=== PATIENT | male | born 1945 | race Caucasian/White ===

== ENCOUNTER 2018-03-10 16:46 | Emergency (ER) | payer MEDICARE, BC ==
[~2018-03-10] VITALS: Ht 190.5 cm; Wt 111.4 kg
[~2018-03-10 16:46] MED LIST: ALLOPURINOL300 MG PO; ASPIRIN 32325 MG/TAB PO; ASPIRIN E.C. 8181 MG PO; BENICAR 20MG TA20 MG PO; BENICAR/HCTZ PO; BUFFERED ASPIR325 M1 PO; CEFTIN250 M1 PO; CLINDAMYCIN HC300 MG PO; COREG PO; COREG12.5 MG PO; COUMADIN 3MG3 MG/TAB PO; COUMADIN 4MG4 MG/TAB PO; COZAAR 25MG25 MG/TAB PO; DIGITEK0.125 MG PO; DIGOXIN0.125 MG PO; FLOMAX 0.40.4 MG/CAP PO; HCTZ 25MG25 MG PO; LASIX 40MG TABL40 MG PO; LESCOL XL PO; LORTAB 7.5/5001 TAB PO; LOVENOX 100100 MG/ML SQ; LOVENOX40 MG/0.4 SC; NO HOME MEDICATIONS; NORCO 325 MG-51 TAB; TRAMADOL50 MG PO; UROXATRAL10 M1 PO; WARFARIN4 MG PO; ZOCOR 20MG20 MG PO; ZYLOPRIM 300MG300 MG PO
[2018-03-10 17:30] VITALS: BP 147/73; TEMP 97.5
[2018-03-10 17:32] LABS: BASO # 0.1 (0.0-0.2); EOS # 0.2 (0.0-0.7); EOS % 2.2 % (0-4.0); GRAN # 4.6 (1.4-6.5); GRAN % 67.4 % (42.2-75.2); HEMATOCRIT 39.9 % (42.0-52.0); HEMOGLOBIN 13.7 g/dl (13.5-18.0); LYMPH # 1.4 (1.2-3.4); LYMPH % 20.3 % (20.0-51.0); MEAN CELL VOLUME 98 fl (80.0-100.0); MEAN CORPUSCULAR HEMOGLOBIN 34 pg (27.0-31.0); MEAN CORPUSCULAR HGB CONC 34 g/dl (33.0-37.0); MEAN PLATELET VOLUME 10.6 fl (7.4-10.4); MONO # 0.6 (0.1-0.6); MONO % 8.7 % (1.7-9.3); PLATELET COUNT 119 K/mm3 (130-400); RED BLOOD COUNT 4.09 M/mm3 (4.20-5.60)
[2018-03-10 17:37] LABS: INR 1.7 (0.8-3.0); PROTHROMBIN TIME 19.7 SECONDS (9.7-12.8)
[2018-03-10 18:13] VITALS: PULSE 73
== END 2018-03-10 18:14 | disposition home or self-care (01) ==
LOC: COL.ER 16:46
PROVIDERS: Family Medicine
DX: R04.0 Epistaxis (principal); I48.91 Unspecified atrial fibrillation; Z79.01 Long term (current) use of anticoagulants; Z79.82 Long term (current) use of aspirin

== ENCOUNTER 2018-10-01 22:57 | Emergency (ER) | payer MEDICARE, BC ==
[~2018-10-01] VITALS: Ht 190.5 cm; Wt 105.5 kg
[2018-10-01 23:09] VITALS: TEMP 97
[2018-10-01] MEDS ORDERED: MELATONIN5 M1 SL (23:57)
[2018-10-01] MEDS ORDERED: B-121000 MCG PO (23:58)
[2018-10-02 01:39] LABS: INR 2.1 (0.8-3.0); PROTHROMBIN TIME 23.8 SECONDS (9.7-12.8)
[2018-10-02] MEDS ORDERED: DOXYCYCLINE HY100 MG PO (02:04)
[2018-10-02 02:27] VITALS: BP 146/95; PULSE 74
== END 2018-10-02 02:32 | disposition home or self-care (01) ==
LOC: COL.ER 22:57
PROVIDERS: Emergency Medicine
DX: L76.21 Postprocedural hemorrhage of skin and subcutaneous tissue following a dermatologic procedure (principal); I10 Essential (primary) hypertension; E78.5 Hyperlipidemia, unspecified; I48.91 Unspecified atrial fibrillation; Z79.82 Long term (current) use of aspirin; Z79.01 Long term (current) use of anticoagulants

== ENCOUNTER 2018-10-02 10:05 | Emergency (ER) | payer MEDICARE, BC ==
[~2018-10-02] VITALS: Ht 190.5 cm; Wt 105.5 kg
[~2018-10-02 10:05] MED LIST changes: +B-121000 MCG PO; +DOXYCYCLINE HY100 MG PO; +MELATONIN5 M1 SL
[2018-10-02 10:13] VITALS: TEMP 96.7
[2018-10-02 12:48] VITALS: BP 142/89; PULSE 70
== END 2018-10-02 13:58 | disposition home or self-care (01) ==
LOC: COL.ER 10:05
DX: T81.31XA Disruption of external operation (surgical) wound, not elsewhere classified, initial encounter (principal); Z79.01 Long term (current) use of anticoagulants; Z98.890 Other specified postprocedural states; Z79.82 Long term (current) use of aspirin

== ENCOUNTER → 2019-02-15 | Outpatient (CLI) | payer MEDICARE, BC ==
[2019-02-15 10:34] LABS: HEMATOCRIT 35.5 % (42.0-52.0); HEMOGLOBIN 11.7 g/dl (13.5-18.0); MEAN CELL VOLUME 99 fl (80.0-100.0); MEAN CORPUSCULAR HEMOGLOBIN 33 pg (27.0-31.0); MEAN CORPUSCULAR HGB CONC 33 g/dl (33.0-37.0); MEAN PLATELET VOLUME 10.5 fl (7.4-10.4); PLATELET COUNT 158 K/mm3 (130-400); RED BLOOD COUNT 3.57 M/mm3 (4.20-5.60); REDCELL DISTRIBUTION WIDTH-CV 14.6 % (11.5-14.5)
[2019-02-15 10:55] LABS: ERYTHROCYTE SEDIMENTATION RATE 76 mm/hr (0-30)
== END ==
LOC: COL.LAB 10:01
PROVIDERS: Orthopaedic Surgery
DX: Z01.812 Encounter for preprocedural laboratory examination (principal); M25.462 Effusion, left knee

== ENCOUNTER 2019-02-17 14:26 | Inpatient (IN) | payer MEDICARE, BC ==
[~2019-02-17] VITALS: Ht 188 cm; Wt 99.6 kg
[2019-02-24] VITALS (9 sets, daily range): BP systolic 120–129; BP diastolic 60–87; PULSE 69–77; TEMP 97–98.9
[2019-02-24 07:48] LABS: INR 1.3 (0.8-3.0); PROTHROMBIN TIME 14.3 SECONDS (9.7-12.8)
[2019-02-24] MEDS ORDERED: TOPROL XL 50MG50 MG PO (08:04)
[2019-02-24] MEDS ORDERED: LOVENOX 100100 MG/ML SQ (08:06)
--- NOTE | 2019-02-24 14:30 | NUR ---
PATIENT BACK IN ROOM 330 POST OP LTK REV WITH POLY EXCHANGE. LTK DRESSING IS CD&I WITH ACEWRAP & TECHNOL BRACE. TEDS & SCD'S TO BLE. POSITIVE PEDAL PULSES TO BLE. SANDOVAL TO DEPENDENT DRAINAGE WITH SMALL AMOUNTS OF CLEAR YELLOW URINE NOTED. IV FLUIDS INFUSING VIA PUMP INTO RIGHT WRIST. NO C/O N/V. LIQUIDS AT BEDSIDE. HEAD TO TOE ASSESSMENT WNL. I&D CONSULT CALLED. PICC LINE TO BE PLACED IN AM. FAMILY AT BEDSIDE. NO OTHER NEEDS. CALL LIGHT IN REACH.
--- NOTE | 2019-02-24 16:26 | NUR ---
ALMA and ALMA student met with the patient and patient's son, Christiano, to discuss discharge plan. The patient lives alone in [place]. He states that his son, Christiano, lives in [facility] and that he has another son that lives in [place]. He reports needing assistance with bathing and has a cane and walker. He states that Christiano is able to help him with bathing. The patient's PCP is Dr. Angel King and he receives his medications by delivery through [facility] and he states that Christiano is also able to pick them up for him. He reports no difficulties obtaining his meds. The patient does not have advanced directives in EMR, but he states that he does have them completed at that his PCP's office should have a copy. ALMA student contacted the patient's PCP's office and requested a copy. The patient reports that he is interested in post-acute rehab upon discharge. ALMA presented and explained the patient choice form. The patient preferred 1) [facility] 2) [facility]. Patient choice form signed by the patient and he was provided a copy. ALMA contacted and faxed a referral to both facilities. SW awaiting their screenings.
[2019-02-24 16:36] LABS: BASO % 0.2 % (0.0-2.0); EOS % 0.3 % (0-4.0); GRAN % 84.7 % (42.2-75.2); LYMPH % 7.4 % (20.0-51.0); MEAN CELL VOLUME 98 fl (80.0-100.0); MEAN CORPUSCULAR HGB CONC 32 g/dl (33.0-37.0); MEAN PLATELET VOLUME 10.1 fl (7.4-10.4); MONO # 0.9 (0.1-0.6); MONO % 6.9 % (1.7-9.3); PLATELET COUNT 228 K/mm3 (130-400); RED BLOOD COUNT 2.93 M/mm3 (4.20-5.60); REDCELL DISTRIBUTION WIDTH-CV 14.7 % (11.5-14.5)
[2019-02-24 16:39] LABS: HEMATOCRIT 28.7 % (42.0-52.0); HEMOGLOBIN 9.2 g/dl (13.5-18.0); MEAN CORPUSCULAR HEMOGLOBIN 31 pg (27.0-31.0)
[2019-02-24 16:53] LABS: ALBUMIN 3.2 gm/dL (3.5-5.0); BILIRUBIN,TOTAL 1.2 mg/dL (0.0-1.0); C-REACTIVE PROTEIN 7.1 mg/dL (0.0-0.9); CALCIUM 8.8 mg/dL (8.4-10.2); CREATININE, serum 0.95 (0.66-1.25); POTASSIUM 4.4 mmol/L (3.4-5.0); TOTAL PROTEIN 6.6 gm/dL (6.4-8.2)
[2019-02-24 16:56] LABS: ERYTHROCYTE SEDIMENTATION RATE 95 mm/hr (0-30)
--- NOTE | 2019-02-24 20:00 | NUR ---
SHIFT REPORT RECEIVED FROM ASHLYN UMANA. PT ANXIOUS AFFECT. PAIN MEDICATION RELEIVING RT KNEE PAIN AT THIS TIME. LLE ELEVATED HIGH ON PILLOW. BULKY DRSG, SCD'S AND CRYOCUFF IN PLACE. IVF'S TO RT HAND. SITE CLEAR. SANDOVAL DRAINING FREELY IN SUFFICIENT QUANITIES. CALL LIGHT IN REACH. BED ALARM SET.
[2019-02-25 00:39] VITALS: BP 127/70; PULSE 80; TEMP 99
[2019-02-25 04:03] VITALS: BP 131/81; PULSE 72; TEMP 98
[2019-02-25 07:07] LABS: INR 1.3 (0.8-3.0); PROTHROMBIN TIME 14.4 SECONDS (9.7-12.8)
[2019-02-25 07:09] LABS: HEMATOCRIT 25.2 % (42.0-52.0); HEMOGLOBIN 8.2 g/dl (13.5-18.0)
--- NOTE | 2019-02-25 07:35 | NUR ---
Report from Renee UMANA.
[2019-02-25 08:33] VITALS: BP 115/65; PULSE 77; TEMP 98.4
--- NOTE | 2019-02-25 09:23 | NUR ---
Brenda, at [facility], reports that they would like to accept the patient; but that they do not have any beds coming available this weekend. Brenda reports that she will keep SW updated. SW to inform the patient and continue to follow.
[2019-02-25 12:36] VITALS: BP 121/67; PULSE 75; TEMP 98.1
--- NOTE | 2019-02-25 14:27 | NUR ---
Joey, at [facility], reports that they can clinically accept the patient; but that he will need to figure out if they will have a bed available. ALMA and ALMA student then met with the patient to update on the referrals. The patient reports that if those facilities do not have a bed for him, then he would prefer [facility]. ALMA attempted to contact Tank at [facility]. ALMA faxed a referral and will continue to follow.
--- NOTE | 2019-02-25 14:59 | NUR ---
Joey, at [facility], reports that they will have a bed available for the patient and that they can accept him. Joey reports that SW will need to keep [facility] updated on what IV antibiotic the patient will be discharged on and the frequency. ALMA and SW student met with the patient to update. The patient reports that he is agreeable to transfer to [facility] upon discharge. SW to continue to follow.
[2019-02-25 16:46] VITALS: BP 131/74; PULSE 77; TEMP 98.1
--- NOTE | 2019-02-25 17:48 | NUR ---
SANDOVAL CATHETER DISCONTINUED EARLIER IN SHIFT. PT TOLERATED WELL TIP INTACT. PATIENT HAS VOIDED SEVERAL TIMES THIS PM.
--- NOTE | 2019-02-25 20:10 | NUR ---
Pt resting in bed napping, shift assessments complete.
--- NOTE | 2019-02-25 20:20 | NUR ---
Pt ambulated to the nurses station, to the room sink and the restroom before returning to bed.
[2019-02-26 00:36] VITALS: BP 116/64; PULSE 72; TEMP 98.1
[2019-02-26 04:18] VITALS: BP 120/67; PULSE 77; TEMP 98.2
--- NOTE | 2019-02-26 05:21 | NUR ---
Pt slept well during the night, some C/O pain in his left leg, VS have remained stable, Pt did ambulate last evening and walked about 25 - 30 feet.
[2019-02-26 07:41] LABS: INR 1.5 (0.8-3.0); PROTHROMBIN TIME 17.2 SECONDS (9.7-12.8)
[2019-02-26 08:42] VITALS: BP 125/73; PULSE 82; TEMP 98.2
[2019-02-26 16:01] VITALS: BP 124/60; PULSE 76; TEMP 97.3
--- NOTE | 2019-02-26 18:00 | NUR ---
Left knee incisional pain improved with prn pain meds. Cryocuff to knee. Dressing change done. Incisional line CDI. Aquacell applied. Patient tolerated procedure fairly well.
--- NOTE | 2019-02-26 20:00 | NUR ---
PT RESTING IN BED. PT ASKED THAT NURSING STAFF NEEDS TO REMIND HIM TP DRINK MORE FLUIDS. I ENC PT TO PARTICIPATE IN HIS OWN RECOVERY PROCESS . PROVIDED FRESH H20. PT C/O LLE PAIN LEVEL 7. REPOSITIONED LEG HIGHER ON PILLOWS. REFUSED CRYOCUFF AT THIS TIME. SCD'S ON. SEE MAR FOR PAIN MEDS GIVEN. DISCUSSED C/O CONSTIPATION. PASSING FLATUS. HYPOACTIVE BS. SEE MAR FOR SENOKOT GIVEN. ORDERED PT PRUNES FOR IN AM. ENC MORE JUICES, AND ACTIVITY. PT AGREED. CALL LIGHT IN PLACE. BED ALARM SET.
[2019-02-26] MEDS ORDERED: COUMADIN 5MG5 MG/TAB PO (20:13)
[2019-02-26] MEDS ORDERED: NORCO 325 MG-7.1 TAB PO (20:13)
[2019-02-26] MEDS ORDERED: ROXICODONE 55 MG/TAB PO (20:14)
[2019-02-26 20:33] VITALS: BP 115/63; PULSE 73; TEMP 98.7
[2019-02-27 00:55] VITALS: BP 123/71; PULSE 72; TEMP 97.8
[2019-02-27 05:03] VITALS: BP 116/62; PULSE 77; TEMP 98.1
--- NOTE | 2019-02-27 06:30 | NUR ---
PT HAD RESTFUL NIGHT. NO BM THIS SHIFT. GAVE WARM PRUNE/APPLE JUICE. SEVERAL DAYS SINCE LAST BM. PT REFUSED SUPPOSITORY. PASSIBG GAS. ABD SL DISTENDED. LAB HERE EARLIER FOR PICC LINE DRAW.
[2019-02-27 08:00] VITALS: BP 132/66; PULSE 93; TEMP 97.1
[2019-02-27 08:02] LABS: INR 1.6 (0.8-3.0); PROTHROMBIN TIME 18.3 SECONDS (9.7-12.8)
--- NOTE | 2019-02-27 10:03 | NUR ---
ALMA met with patient about ps dc today. Patient is agreeable to [facility]. ALMA faxed DC orders to [facility] at [phone] and made contact with Joey at [facility] [phone], Transportation tentative for 12:00 pm.
[2019-02-27 10:23] VITALS: BP 132/66; PULSE 93; TEMP 97.1
[2019-02-27 12:00] VITALS: BP 121/63; PULSE 82; TEMP 97
[2019-02-27] MEDS ORDERED: VANCO 1.51.5 GM/250 IV (12:19)
--- NOTE | 2019-02-27 13:00 | NUR ---
Ambulated in halls with physical therapy today. Sat up in recliner chair. Left knee pain controlled with prn Cuero and Roxicodone. Cryocuff to knee. Immobilizer in place. Report given to nurse at [facility]. Dismissed with PICC line in place for antibiotics. Dismissed per w/c gary. Family here.
== END 2019-02-27 13:00 | DRG 467 ==
LOC: JCC 02-24 06:57 → SURG 02-24 11:00 → JCC 02-24 11:00
PROVIDERS: Internal Medicine Infectious Disease; ADMIT Orthopaedic Surgery
PROC: 0SRD0EZ Replacement of Left Knee Joint with Articulating Spacer, Open Approach (ICD-10-PCS; 2019-02-24)
PROC: 0SBD0ZZ Excision of Left Knee Joint, Open Approach (ICD-10-PCS; 2019-02-24)
PROC: 0SPD0JZ Removal of Synthetic Substitute from Left Knee Joint, Open Approach (ICD-10-PCS; principal; 2019-02-24 10:10)
DX: T84.54XA Infection and inflammatory reaction due to internal left knee prosthesis, initial encounter (principal); I42.0 Dilated cardiomyopathy; Z96.652 Presence of left artificial knee joint; Z79.01 Long term (current) use of anticoagulants; I10 Essential (primary) hypertension; Z95.0 Presence of cardiac pacemaker; I48.91 Unspecified atrial fibrillation; I87.2 Venous insufficiency (chronic) (peripheral); Z85.828 Personal history of other malignant neoplasm of skin; Z88.0 Allergy status to penicillin
CPT/HCPCS: A4314; A9284; C1751; C1776; J0690; J1170; J1650; J2250; J2270; J2704; J3010; J3260; J3370; J7050; J7120; L1830

== ENCOUNTER → 2019-02-21 | Outpatient (CLI) | payer MEDICARE, BC ==
[2019-02-21 18:50] LABS: HIV 1/2 Antibodies Non-Reactive; HIV-1p24 Antigen Non-Reactive
== END ==
LOC: COL.LAB 17:16
PROVIDERS: Orthopaedic Surgery
DX: Z01.812 Encounter for preprocedural laboratory examination (principal)

== ENCOUNTER → 2019-03-02 | Outpatient (REF) ==
[~2019-03-02] MED LIST changes: +COUMADIN 5MG5 MG/TAB PO; +NORCO 325 MG-7.1 TAB PO; +ROXICODONE 55 MG/TAB PO; +TOPROL XL 50MG50 MG PO; +VANCO 1.51.5 GM/250 IV
[2019-03-02 08:45] LABS: BASO % 0.4 % (0.0-2.0); EOS # 0.2 (0.0-0.7); GRAN # 5.6 (1.4-6.5); GRAN % 76.3 % (42.2-75.2); LYMPH # 0.9 (1.2-3.4); LYMPH % 11.7 % (20.0-51.0); MEAN CELL VOLUME 96 fl (80.0-100.0); MEAN CORPUSCULAR HGB CONC 32 g/dl (33.0-37.0); MEAN PLATELET VOLUME 9.9 fl (7.4-10.4); MONO # 0.6 (0.1-0.6); MONO % 8.5 % (1.7-9.3); PLATELET COUNT 282 K/mm3 (130-400); RED BLOOD COUNT 2.53 M/mm3 (4.20-5.60); REDCELL DISTRIBUTION WIDTH-CV 15.2 % (11.5-14.5)
[2019-03-02 08:47] LABS: HEMATOCRIT 24.2 % (42.0-52.0); HEMOGLOBIN 7.8 g/dl (13.5-18.0); MEAN CORPUSCULAR HEMOGLOBIN 31 pg (27.0-31.0)
[2019-03-02 08:52] LABS: INR 1.6 (0.8-3.0)
[2019-03-02 08:59] LABS: ALBUMIN 2.7 gm/dL (3.5-5.0); BILIRUBIN,TOTAL 0.9 mg/dL (0.0-1.0); C-REACTIVE PROTEIN 4.6 mg/dL (0.0-0.9); CALCIUM 8.3 mg/dL (8.4-10.2); CREATININE, serum 0.94 (0.66-1.25); POTASSIUM 4.2 mmol/L (3.4-5.0); TOTAL PROTEIN 5.5 gm/dL (6.4-8.2)
[2019-03-02 09:01] LABS: VANCOMYCIN TROUGH 18.54 ug/mL (7.00-20.00)
[2019-03-02 09:06] LABS: ERYTHROCYTE SEDIMENTATION RATE 109 mm/hr (0-30)
== END ==
LOC: ZLAB.STJ 08:29
PROVIDERS: Family Medicine
DX: Z79.899 Other long term (current) drug therapy (principal)

== ENCOUNTER → 2019-03-04 | Outpatient (REF) ==
[2019-03-04 16:15] LABS: INR 1.5 (0.8-3.0); PROTHROMBIN TIME 17.4 SECONDS (9.7-12.8)
== END ==
LOC: ZLAB.STJ 15:58
PROVIDERS: Family Medicine
DX: R79.1 Abnormal coagulation profile (principal)

== ENCOUNTER → 2019-03-09 | Outpatient (REF) ==
[2019-03-09 10:34] LABS: MEAN CELL VOLUME 97 fl (80.0-100.0); MEAN CORPUSCULAR HGB CONC 32 g/dl (33.0-37.0); MEAN PLATELET VOLUME 10.1 fl (7.4-10.4); PLATELET COUNT 248 K/mm3 (130-400); RED BLOOD COUNT 2.76 M/mm3 (4.20-5.60); REDCELL DISTRIBUTION WIDTH-CV 15.9 % (11.5-14.5)
[2019-03-09 10:36] LABS: HEMATOCRIT 26.7 % (42.0-52.0); HEMOGLOBIN 8.5 g/dl (13.5-18.0); MEAN CORPUSCULAR HEMOGLOBIN 31 pg (27.0-31.0)
[2019-03-09 10:43] LABS: ALBUMIN 3.3 gm/dL (3.5-5.0); BILIRUBIN,TOTAL 0.7 mg/dL (0.0-1.0); C-REACTIVE PROTEIN 0.9 mg/dL (0.0-0.9); CALCIUM 9.1 mg/dL (8.4-10.2); CREATININE, serum 0.98 (0.66-1.25); POTASSIUM 3.9 mmol/L (3.4-5.0); TOTAL PROTEIN 6.6 gm/dL (6.4-8.2)
[2019-03-09 10:54] LABS: ERYTHROCYTE SEDIMENTATION RATE 63 mm/hr (0-30)
== END ==
LOC: ZLAB.STJ 10:28
PROVIDERS: Family Medicine
DX: Z51.81 Encounter for therapeutic drug level monitoring (principal); R79.82 Elevated C-reactive protein (CRP); R79.89 Other specified abnormal findings of blood chemistry; R70.0 Elevated erythrocyte sedimentation rate

== ENCOUNTER → 2019-03-10 | Outpatient (REF) ==
[2019-03-10 09:22] LABS: INR 1.5 (0.8-3.0); PROTHROMBIN TIME 16.7 SECONDS (9.7-12.8)
== END ==
LOC: ZLAB.STJ 09:05
PROVIDERS: Family Medicine
DX: Z79.01 Long term (current) use of anticoagulants (principal)

== ENCOUNTER → 2019-03-14 | Outpatient (REF) ==
[2019-03-14 09:33] LABS: PROTHROMBIN TIME 33.6 SECONDS (9.7-12.8)
== END ==
LOC: ZLAB.STJ 09:00
PROVIDERS: Family Medicine
DX: R79.1 Abnormal coagulation profile (principal)

== ENCOUNTER → 2019-03-16 | Outpatient (REF) ==
[2019-03-16 10:11] LABS: BASO # 0.1 (0.0-0.2); EOS # 0.1 (0.0-0.7); EOS % 2.1 % (0-4.0); ERYTHROCYTE SEDIMENTATION RATE 34 mm/hr (0-30); HEMATOCRIT 30.2 % (42.0-52.0); HEMOGLOBIN 9.4 g/dl (13.5-18.0); LYMPH # 1.1 (1.2-3.4); LYMPH % 18.5 % (20.0-51.0); MEAN CELL VOLUME 97 fl (80.0-100.0); MEAN CORPUSCULAR HEMOGLOBIN 30 pg (27.0-31.0); MEAN CORPUSCULAR HGB CONC 31 g/dl (33.0-37.0); MEAN PLATELET VOLUME 10.3 fl (7.4-10.4); MONO # 0.5 (0.1-0.6); MONO % 7.9 % (1.7-9.3); PLATELET COUNT 161 K/mm3 (130-400); RED BLOOD COUNT 3.13 M/mm3 (4.20-5.60)
[2019-03-16 10:17] LABS: ALBUMIN 3.3 gm/dL (3.5-5.0); BILIRUBIN,TOTAL 0.5 mg/dL (0.0-1.0); C-REACTIVE PROTEIN 0.6 mg/dL (0.0-0.9); CALCIUM 9.2 mg/dL (8.4-10.2); CREATININE, serum 1.01 (0.66-1.25); POTASSIUM 3.7 mmol/L (3.4-5.0); TOTAL PROTEIN 6.2 gm/dL (6.4-8.2)
[2019-03-16 10:29] LABS: VANCOMYCIN TROUGH 22.16 ug/mL (7.00-20.00)
[2019-03-16 14:17] LABS: COLLECTION METHOD CLEAN CATCH
[2019-03-16 14:26] LABS: PH 7 (5-8); SQUAMOUS EPITHELIAL None Seen /hpf; URINE APPEARANCE Clear; URINE BACTERIA Rare /hpf; URINE BILIRUBIN Negative (NEGATIVE); URINE BLOOD Negative (NEGATIVE); URINE COLOR Yellow; URINE GLUCOSE Negative (NEGATIVE); URINE KETONE Negative (NEGATIVE); URINE LEUKOCYTE ESTERASE Negative (NEGATIVE); URINE NITRATE Negative (NEGATIVE); URINE PROTEIN(semi-quant) Negative (NEGATIVE); URINE RBC None Seen /hpf; URINE UROBILINOGEN Negative (NEGATIVE)
== END ==
LOC: ZLAB.STJ 08:54
PROVIDERS: Family Medicine
DX: Z51.81 Encounter for therapeutic drug level monitoring (principal); R82.90 Unspecified abnormal findings in urine; R79.89 Other specified abnormal findings of blood chemistry; R70.0 Elevated erythrocyte sedimentation rate; R68.89 Other general symptoms and signs

== ENCOUNTER → 2019-03-23 | Outpatient (REF) ==
[2019-03-23 10:43] LABS: BASO # 0.1 (0.0-0.2); BASO % 1.3 % (0.0-2.0); EOS # 0.2 (0.0-0.7); EOS % 2.7 % (0-4.0); GRAN # 3.7 (1.4-6.5); GRAN % 66.9 % (42.2-75.2); LYMPH # 1.1 (1.2-3.4); LYMPH % 19.4 % (20.0-51.0); MEAN CELL VOLUME 96 fl (80.0-100.0); MEAN CORPUSCULAR HGB CONC 31 g/dl (33.0-37.0); MEAN PLATELET VOLUME 11.4 fl (7.4-10.4); MONO # 0.5 (0.1-0.6); MONO % 9.3 % (1.7-9.3); PLATELET COUNT 119 K/mm3 (130-400); RED BLOOD COUNT 3.25 M/mm3 (4.20-5.60); REDCELL DISTRIBUTION WIDTH-CV 15.9 % (11.5-14.5)
[2019-03-23 10:45] LABS: HEMATOCRIT 31.2 % (42.0-52.0); HEMOGLOBIN 9.8 g/dl (13.5-18.0); MEAN CORPUSCULAR HEMOGLOBIN 30 pg (27.0-31.0)
[2019-03-23 10:56] LABS: ALBUMIN 3.4 gm/dL (3.5-5.0); BILIRUBIN,TOTAL 0.5 mg/dL (0.0-1.0); C-REACTIVE PROTEIN 0.6 mg/dL (0.0-0.9); CALCIUM 9.2 mg/dL (8.4-10.2); CREATININE, serum 0.97 (0.66-1.25); TOTAL PROTEIN 6.2 gm/dL (6.4-8.2)
[2019-03-23 10:59] LABS: VANCOMYCIN TROUGH 13.04 ug/mL (7.00-20.00)
[2019-03-23 11:07] LABS: ERYTHROCYTE SEDIMENTATION RATE 18 mm/hr (0-30)
== END ==
LOC: ZLAB.STJ 10:35
PROVIDERS: Family Medicine
DX: Z51.81 Encounter for therapeutic drug level monitoring (principal); R79.89 Other specified abnormal findings of blood chemistry; R70.0 Elevated erythrocyte sedimentation rate; R68.89 Other general symptoms and signs

== ENCOUNTER 2019-04-19 09:00 | Outpatient (RCR) | payer MEDICARE, BC ==
[2019-03-25 08:22] VITALS: BP 99/64; PULSE 70; TEMP 98.1
[2019-03-25 08:39] LABS: INR 4.3 (0.8-3.0)
[2019-03-25 08:42] LABS: PROTHROMBIN TIME 48.9 SECONDS (9.7-12.8)
[2019-03-26 07:49] VITALS: BP 114/79; PULSE 67; TEMP 98.1
[2019-03-27 07:30] VITALS: BP 119/73; PULSE 70; TEMP 98
[2019-03-28 07:48] VITALS: BP 111/62; PULSE 69; TEMP 97.9
[2019-03-28 07:56] LABS: INR 2.1 (0.8-3.0); PROTHROMBIN TIME 24.4 SECONDS (9.7-12.8)
--- NOTE | 2019-03-28 08:10 | NUR ---
PICC intact right upper arm. With sterile technique right upper arm PICC dressing change done with insertion site cleansed with ChloraPrep 1, chlorhexidine impregnated disc applied, skin prep, StatLock, and Tegaderm applied. No signs or symptoms of IV complications noted. No concerns voiced. Arm wrapped with Jhon to protect catheter.
[2019-03-29 07:40] VITALS: BP 123/75; PULSE 71; TEMP 97.9
[2019-03-30 07:46] LABS: HEMOGLOBIN 10.3 g/dl (13.5-18.0); MEAN CELL VOLUME 97 fl (80.0-100.0); MEAN CORPUSCULAR HEMOGLOBIN 30 pg (27.0-31.0); MEAN CORPUSCULAR HGB CONC 31 g/dl (33.0-37.0); MEAN PLATELET VOLUME 10.9 fl (7.4-10.4); PLATELET COUNT 131 K/mm3 (130-400); RED BLOOD COUNT 3.46 M/mm3 (4.20-5.60); REDCELL DISTRIBUTION WIDTH-CV 15.9 % (11.5-14.5)
[2019-03-30 07:47] LABS: HEMATOCRIT 33.5 % (42.0-52.0)
[2019-03-30 08:00] VITALS: BP 119/68; PULSE 70; TEMP 98
[2019-03-30 08:06] LABS: ALBUMIN 3.9 gm/dL (3.5-5.0); BILIRUBIN,TOTAL 0.7 mg/dL (0.0-1.0); C-REACTIVE PROTEIN 0.6 mg/dL (0.0-0.9); CALCIUM 9.5 mg/dL (8.4-10.2); CREATININE, serum 1.06 (0.66-1.25); ERYTHROCYTE SEDIMENTATION RATE 6 mm/hr (0-30); POTASSIUM 3.8 mmol/L (3.4-5.0); TOTAL PROTEIN 6.9 gm/dL (6.4-8.2)
[2019-03-30 08:09] LABS: VANCOMYCIN TROUGH 14.78 ug/mL (7.00-20.00)
[2019-03-31 07:51] VITALS: BP 114/71; PULSE 70; TEMP 97.6
[2019-03-31 07:57] LABS: INR 2.7 (0.8-3.0); PROTHROMBIN TIME 31.1 SECONDS (9.7-12.8)
[2019-04-01 07:29] VITALS: BP 118/74; PULSE 71; TEMP 97.4
--- NOTE | 2019-04-01 09:08 | NUR ---
IV ATB INFUSION COMPLETE. PICC LINE FLUSHED WITH 10ML SALINE. PT TOLERATED WELL. NO S/S OF INFECTION. PT AMBULATED WITH WALKER TO EXIT.
[2019-04-02 07:35] VITALS: BP 117/72; PULSE 71; TEMP 97.5
[2019-04-03 07:28] VITALS: BP 121/78; PULSE 72; TEMP 97.4
[2019-04-04 07:49] VITALS: BP 116/77; PULSE 71; TEMP 98.5
--- NOTE | 2019-04-04 08:00 | NUR ---
PICC intact right upper arm with sterile dressing change done with insertion site cleansed with chloraprep x 1, skin prep, stat lock, chlorhexidine impregnated disk applied. no signs or symptoms of IV complications noted. no concerns voiced. re-wrapped with leo to protect catheter.
[2019-04-05 10:03] VITALS: BP 138/80; PULSE 69; TEMP 97.6
[2019-04-06 08:05] VITALS: BP 116/74; PULSE 70; TEMP 97.4
[2019-04-06 08:15] LABS: BASO % 0.6 % (0.0-2.0); EOS # 0.1 (0.0-0.7); EOS % 1.3 % (0-4.0); GRAN # 5.1 (1.4-6.5); GRAN % 76.2 % (42.2-75.2); LYMPH % 14.5 % (20.0-51.0); MEAN CELL VOLUME 96 fl (80.0-100.0); MEAN CORPUSCULAR HGB CONC 31 g/dl (33.0-37.0); MEAN PLATELET VOLUME 11.3 fl (7.4-10.4); MONO # 0.5 (0.1-0.6); PLATELET COUNT 119 K/mm3 (130-400); RED BLOOD COUNT 3.18 M/mm3 (4.20-5.60); REDCELL DISTRIBUTION WIDTH-CV 15.9 % (11.5-14.5)
[2019-04-06 08:16] LABS: HEMATOCRIT 30.4 % (42.0-52.0); HEMOGLOBIN 9.5 g/dl (13.5-18.0); MEAN CORPUSCULAR HEMOGLOBIN 30 pg (27.0-31.0)
[2019-04-06 08:18] LABS: ALBUMIN 3.9 gm/dL (3.5-5.0); BILIRUBIN,TOTAL 0.6 mg/dL (0.0-1.0); C-REACTIVE PROTEIN 0.6 mg/dL (0.0-0.9); CALCIUM 9.1 mg/dL (8.4-10.2); CREATININE, serum 1.06 (0.66-1.25)
[2019-04-06 08:33] LABS: ERYTHROCYTE SEDIMENTATION RATE 13 mm/hr (0-30)
[2019-04-07 07:31] VITALS: BP 126/79; PULSE 73; TEMP 97.7
--- NOTE | 2019-04-08 09:34 | NUR ---
Clarified with EDGARD Sapp pts last odse of abx was yesterday,April 07.Per pt he has apt with Dr Lopez today.Reported pt scheduled for PICC cares on mondays.Per Senait they will let us know if they need anything further.
--- NOTE | 2019-04-08 14:23 | NUR ---
Clarified with EDGARD Sapp at office end date is march.Spoke wtraulito vincent,pharmacist to report.
[2019-04-11 09:36] LABS: BASO % 0.6 % (0.0-2.0); EOS # 0.1 (0.0-0.7); EOS % 1.5 % (0-4.0); GRAN # 4.9 (1.4-6.5); GRAN % 74.8 % (42.2-75.2); HEMOGLOBIN 10.5 g/dl (13.5-18.0); LYMPH % 14.7 % (20.0-51.0); MEAN CELL VOLUME 95 fl (80.0-100.0); MEAN CORPUSCULAR HEMOGLOBIN 30 pg (27.0-31.0); MEAN CORPUSCULAR HGB CONC 32 g/dl (33.0-37.0); MEAN PLATELET VOLUME 11.1 fl (7.4-10.4); MONO # 0.5 (0.1-0.6); MONO % 7.8 % (1.7-9.3); PLATELET COUNT 133 K/mm3 (130-400); RED BLOOD COUNT 3.49 M/mm3 (4.20-5.60); REDCELL DISTRIBUTION WIDTH-CV 16.5 % (11.5-14.5)
[2019-04-11 09:42] VITALS: BP 117/67; PULSE 70; TEMP 97.5
[2019-04-11 09:48] LABS: ALBUMIN 4.1 gm/dL (3.5-5.0); C-REACTIVE PROTEIN 0.6 mg/dL (0.0-0.9); CALCIUM 9.6 mg/dL (8.4-10.2); CREATININE, serum 1.02 (0.66-1.25); POTASSIUM 3.8 mmol/L (3.4-5.0); TOTAL PROTEIN 7.5 gm/dL (6.4-8.2)
[2019-04-11 10:07] LABS: ERYTHROCYTE SEDIMENTATION RATE 16 mm/hr (0-30)
[~2019-04-19] VITALS: Ht 188 cm; Wt 100.5 kg
[~2019-04-19 09:00] MED LIST changes: +AMOXICILLIN 50500 MG PO; +COUMADIN4 MG PO; +MELATONIN5 M1 PO; -MELATONIN5 M1 SL; +OXY IR5 MG PO
[2019-04-19 09:09] LABS: BASO # 0.1 (0.0-0.2); EOS # 0.2 (0.0-0.7); EOS % 3.1 % (0-4.0); GRAN # 4.8 (1.4-6.5); GRAN % 67.6 % (42.2-75.2); HEMATOCRIT 35.8 % (42.0-52.0); HEMOGLOBIN 11.5 g/dl (13.5-18.0); LYMPH # 1.4 (1.2-3.4); LYMPH % 20.4 % (20.0-51.0); MEAN CELL VOLUME 94 fl (80.0-100.0); MEAN CORPUSCULAR HEMOGLOBIN 30 pg (27.0-31.0); MEAN CORPUSCULAR HGB CONC 32 g/dl (33.0-37.0); MEAN PLATELET VOLUME 10.1 fl (7.4-10.4); MONO # 0.5 (0.1-0.6); MONO % 7.5 % (1.7-9.3); PLATELET COUNT 143 K/mm3 (130-400); RED BLOOD COUNT 3.81 M/mm3 (4.20-5.60); REDCELL DISTRIBUTION WIDTH-CV 16.6 % (11.5-14.5)
[2019-04-19 09:23] LABS: ALBUMIN 4.1 gm/dL (3.5-5.0); BILIRUBIN,TOTAL 0.8 mg/dL (0.0-1.0); C-REACTIVE PROTEIN 0.6 mg/dL (0.0-0.9); CALCIUM 9.7 mg/dL (8.4-10.2); CREATININE, serum 1.08 (0.66-1.25); POTASSIUM 4.4 mmol/L (3.4-5.0); TOTAL PROTEIN 7.6 gm/dL (6.4-8.2)
[2019-04-19 09:29] VITALS: BP 130/72; PULSE 66; TEMP 98
--- NOTE | 2019-04-19 09:52 | NUR ---
PICC discontiued by Geno UMANA IVS. Discontinuation teaching and instruction sheet complete. No bleeding noted after 20 minutes.
[2019-04-19 09:55] LABS: ERYTHROCYTE SEDIMENTATION RATE 14 mm/hr (0-30)
== END 2019-04-19 09:53 | disposition home or self-care (01) ==
LOC: EUO 09:00
PROVIDERS: Family Medicine; Internal Medicine Infectious Disease; Nurse Practitioner
DX: M00.9 Pyogenic arthritis, unspecified (principal); B95.2 Enterococcus as the cause of diseases classified elsewhere
CPT/HCPCS: J3370; J7050

== ENCOUNTER 2019-04-20 13:52 | Inpatient (IN) | payer MEDICARE, BC ==
[~2019-04-20] VITALS: Ht 188 cm; Wt 97.4 kg
[2019-05-31] VITALS (12 sets, daily range): BP systolic 106–1116; BP diastolic 60–83; PULSE 65–73; TEMP 97.4–97.6
[2019-05-31] MEDS ORDERED: LOVENOX 100100 MG/ML SQ (09:18)
--- NOTE | 2019-05-31 17:45 | NUR ---
PATIENT BACK IN ROOM 328 POST OP. ORIENTED BUT DROWSY. PATIENT RECEIVED 1 UNIT PRBC IN OR. VSS. ASYMPTOMATIC. LTK DRESSING IS CD&I WITH ACEWRAP. TEDS TO RLE. SCD'S TO BLE. POSITIVE PEDAL PULSES TO BLE. SANDOVAL TO DD WITH SMALL AMOUNTS OF CLEAR YELLOW URINE NOTED. IV FLUIDS INFUSING VIA PUMP INTO LEFT HAND. NO C/O N/V. LIQUIDS AT BEDSIDE. HEAD TO TOE WNL. FAMIYL AT BEDSIDE. CALL LIGHT IN REACH.
--- NOTE | 2019-05-31 21:00 | NUR ---
Pt. laying in bed. Pt. is A&OX3, assessment complete. IV to lt. forearm patent, IV fluids infusing per orders. Dressing to lt. knee cdi. Pt. reports pain at a 6 on pain scale, will give pain meds per orders. Pt. denies further needs, call light within reach.
[2019-05-31 22:01] LABS: HEMATOCRIT 29.8 % (42.0-52.0); HEMOGLOBIN 9.5 g/dl (13.5-18.0)
[2019-06-01 06:04] VITALS: BP 123/68; PULSE 70; TEMP 98.3
--- NOTE | 2019-06-01 06:50 | NUR ---
awake resting in bed, bedside shift report received from DONG Tai has ordered breakfast
[2019-06-01 07:40] VITALS: BP 97/59; PULSE 72; TEMP 97.6
--- NOTE | 2019-06-01 07:40 | NUR ---
has had breakfast and tolerated well, full assessment completed, see interventions for further info, denies needs at this time
[2019-06-01 08:23] LABS: HEMATOCRIT 27.6 % (42.0-52.0)
[2019-06-01 08:28] LABS: PROTHROMBIN TIME 11.9 SECONDS (9.7-12.8)
[2019-06-01 09:15] VITALS: BP 103/59; PULSE 72
--- NOTE | 2019-06-01 09:15 | NUR ---
BP now 103/59 and P 77, will wait to give BP meds, other meds given
--- NOTE | 2019-06-01 09:45 | NUR ---
ambulating in combs with physical therapy, then back to room and into recliner
--- NOTE | 2019-06-01 10:00 | NUR ---
Dr Pinto called this nurse to check on patient, occupational therapy in to work with patient
--- NOTE | 2019-06-01 11:09 | NUR ---
resting in chair visiting with son, denies needs
--- NOTE | 2019-06-01 12:01 | NUR ---
Initial visit; Patient thanked Medical Lead for stopping and offering spiritual care. Patient seems like he is feeling better and he confirmed that he is improving. His family offer support and patient seems to be doing well.
[2019-06-01 12:13] VITALS: BP 115/68; PULSE 74; TEMP 97.8
--- NOTE | 2019-06-01 12:20 | NUR ---
BP better now and remainder of am meds given, denies need for pain pills
--- NOTE | 2019-06-01 13:04 | NUR ---
ambulated out to combs with physical therapy, c/o pain while up and ambulating, medicated with hydrocodone 7.5mg 2 tabs
--- NOTE | 2019-06-01 14:00 | NUR ---
ambulated back to room after therapy and assisted into bed and will now eat lunch,
--- NOTE | 2019-06-01 14:56 | NUR ---
ALMA met with patient and his son to discuss discharge planning. Patient lives alone in [place] but has a son that lives here and one that lives in [place]. His PCP is Dr King and he obtains his medications from [facility]. Patient has been to [facility] for skilled care however he doesnt want to return. Patient has a DPOA in EMR. [facility] He has a walker and cane. There are no discharge needs anticipated at this time.
--- NOTE | 2019-06-01 15:23 | NUR ---
appears to be sleeping, in bed with lights off, eyes closed, resp quiet and easy
[2019-06-01 17:00] VITALS: BP 107/60; PULSE 70; TEMP 98.6
--- NOTE | 2019-06-01 17:25 | NUR ---
davis catheter discontinued, tolerated well
--- NOTE | 2019-06-01 17:30 | NUR ---
instructed on using urinal or calling for help when needs to void, verbalizes understanding
--- NOTE | 2019-06-01 18:55 | NUR ---
bedside shift report given to DONG Kumar
[2019-06-01 20:02] VITALS: BP 115/47; PULSE 70; TEMP 98.1
[2019-06-02] VITALS (7 sets, daily range): BP systolic 90–105; BP diastolic 41–58; PULSE 69–73; TEMP 97.6–99.2
--- NOTE | 2019-06-02 03:27 | NUR ---
Patient has rested well tonight. Ambulated with staff around 2200 with steady gait. Utilizes walker and gait belt. Pain well controlled. Will continue to monitor.
--- NOTE | 2019-06-02 06:35 | NUR ---
bedside shift report received from DONG Childs, Dr Obrien was in to see patient
--- NOTE | 2019-06-02 07:10 | NUR ---
in bed looking at phone, xeroform gauze removed from incision and incision with willy CD&I, cleaned with betadine swabs and aquacel placed, full assessment comopleted, see interventions for further info,
--- NOTE | 2019-06-02 09:22 | NUR ---
ambulated out to combs with physical therapy for group exercises
--- NOTE | 2019-06-02 10:00 | NUR ---
back to room after physical therapy and occupational therapy in to help patient with taking a shower
[2019-06-02 10:30] LABS: HEMATOCRIT 27.6 % (42.0-52.0); HEMOGLOBIN 8.8 g/dl (13.5-18.0); PROTHROMBIN TIME 11.7 SECONDS (9.7-12.8)
--- NOTE | 2019-06-02 12:50 | NUR ---
resting in bed, medicated with hydrocodone 7.5mg 2 tabs for c/os pain 05/02 and in anticipation of therapy
--- NOTE | 2019-06-02 14:00 | NUR ---
ambulated back to room and into bed after therapy and will try to nap
--- NOTE | 2019-06-02 16:06 | NUR ---
awake resting in bed visiting with his son, denies needs
--- NOTE | 2019-06-02 18:51 | NUR ---
bedside shift report given to DONG Childs
--- NOTE | 2019-06-03 01:48 | NUR ---
Patient resting well throughout the night. Utilizes urinal throughout the night. Denies pain unless he is moving around, but movement "jumps up to about a 7". Cryocuff applied. Aquacell in place with no drainage. Tolerating food/fludis well. Will continue to monitor.
[2019-06-03 03:08] VITALS: BP 97/77; PULSE 73; TEMP 98.1
[2019-06-03 06:50] LABS: HEMATOCRIT 26.7 % (42.0-52.0); HEMOGLOBIN 8.4 g/dl (13.5-18.0)
[2019-06-03 06:54] LABS: PROTHROMBIN TIME 11.7 SECONDS (9.7-12.8)
--- NOTE | 2019-06-03 08:00 | NUR ---
PATIENT IS A&O. NOTED LOWER B/P OF 97/77. PATIENT LOST OVER 800CC OF BLOOD IN OR AND WAS GIVEN 1 UNIT OF BLOOD. PATIENT HAS BEEN STRUGGLING WITH LOW B/P SINCE. HOSPITALIST CONSULTED. B/P MEDS HELD. PATIENT DOES REPORTS SOME DIZZINESS AND WEAKNESS WITH ACTIVITIES. LTK DRESSING IS CD&I WITH AQUACEL. NOTED +2 BLE EDEMA WHICH IS CHRONIC FOR PATIENT. TEDS TO BLE. POSITIVE WEAK PEDAL PULSES. PATIENT EAT/DRINK/VOIDING SUFFICIENT AMOUNTS. NO C/O N/V. NO IV SITE. HEAD TO TOE ASSESSMENT WNL. AM MEDS GIVEN. BREAKFAST TRAY AT BEDSIDE. NO OTHER NEEDS. CALL LIGHT IN REACH.
[2019-06-03 08:14] VITALS: BP 100/50; PULSE 76; TEMP 98.7
[2019-06-03 10:57] VITALS: BP 97/52
--- NOTE | 2019-06-03 11:37 | NUR ---
SW attended clinical rounding. Patients BP is low and the hospitalist is going to monitor. SW presented IM to patient and verbally discussed the contents. Patient is agreeable and signed the form. Copy provided to patient and original placed on the chart. SW will continue to follow.
[2019-06-03 11:39] VITALS: BP 100/53; PULSE 77
[2019-06-03] MEDS ORDERED: MINOCYCLIN100 MG/CAP PO (15:44)
[2019-06-03] MEDS ORDERED: LOVENOX 3030 MG/0.3 SQ (15:44)
[2019-06-03] MEDS ORDERED: ROXICODONE 55 MG/TAB PO (15:45)
[2019-06-03] MEDS ORDERED: NORCO 325 MG-7.1 TAB PO (15:45)
--- NOTE | 2019-06-03 17:55 | NUR ---
PATIENT DISCHARGING HOME VIA WHEELCHAIR TO PERSONAL VEHICLE WITH SON. GAVE DISCHARGE INSTRUCTIONS, PRESCRIPTIONS ALREADY FILLED BY [facility] RUIZ AND FOLLOW UP APTS. ANSWERED ALL QUESTIONS/CONCERNS. SENT HOME PERSONAL BELONGINGS. NO IV SITE. PATIENT DISCHARGED.
== END 2019-06-03 17:55 | disposition home health service (06) | DRG 467 ==
LOC: JCC 05-31 07:56
PROVIDERS: Nurse Practitioner Family; ADMIT Orthopaedic Surgery
PROC: 0SPD0JZ Removal of Synthetic Substitute from Left Knee Joint, Open Approach (ICD-10-PCS; 2019-05-31)
PROC: 0SRD0J9 Replacement of Left Knee Joint with Synthetic Substitute, Cemented, Open Approach (ICD-10-PCS; 2019-05-31)
PROC: 0SPD0JZ Removal of Synthetic Substitute from Left Knee Joint, Open Approach (ICD-10-PCS; principal; 2019-05-31 13:25)
DX: Z47.32 Aftercare following explantation of hip joint prosthesis (principal); D62 Acute posthemorrhagic anemia; I42.9 Cardiomyopathy, unspecified; I95.81 Postprocedural hypotension; I48.91 Unspecified atrial fibrillation; Z79.01 Long term (current) use of anticoagulants; I10 Essential (primary) hypertension; M10.9 Gout, unspecified; Z95.0 Presence of cardiac pacemaker; Z88.0 Allergy status to penicillin; E11.42 Type 2 diabetes mellitus with diabetic polyneuropathy
CPT/HCPCS: 99222; A4314; A9284; C1713; C1776; J0690; J1100; J1650; J2250; J2405; J2704; J3010; J3260; J3370; J7030; J7050; P9016

== ENCOUNTER 2019-06-07 11:09 | Outpatient (RCR) | payer MEDICARE, BC ==
[~2019-06-07] VITALS: Ht 188 cm; Wt 99.1 kg
[~2019-06-07 11:09] MED LIST changes: +LOVENOX 3030 MG/0.3 SQ; +MINOCYCLIN100 MG/CAP PO
[2019-06-07 13:00] VITALS: BP 101/55; PULSE 92; TEMP 99.5
--- NOTE | 2019-06-07 13:00 | NUR ---
MELISSA, LAND CLEARER STATED THAT THE PT HAS NOT HAD A BM SINCE BEFORE SURGERY AND HE IS ALSO NOT TAKING HIS LASIX. THIS RN SPOKE WITH PT AND HE STATED THAT DR HARRISON'S NURSE IS AWARE THAT HE HAS NOT HAD A BM AND DR HARRISON IS AWARE THAT HE IS OFF THE LASIX. ENCOURAGED PT TO CALL DR HARRISON'S OFFICE IF HIS FEVER DOES RETURN AFTER BEING DISCHARGED TODAY. PT AWARE.
[2019-06-07] MEDS ORDERED: COUMADIN 77.5 MG/TAB PO (13:08)
[2019-06-07 13:16] VITALS: BP 99/57; PULSE 85; TEMP 100.4
[2019-06-07 13:46] VITALS: BP 104/54; PULSE 81; TEMP 99.7
[2019-06-07 14:46] VITALS: BP 104/57; PULSE 77; TEMP 98.5
[2019-06-07 15:45] VITALS: BP 97/55; PULSE 81; TEMP 98.3
[2019-06-07 15:55] VITALS: BP 105/60; PULSE 79; TEMP 98.3
[2019-06-07] MEDS ORDERED: TOPROL XL 50MG50 MG PO (21:26)
[2019-06-07] MEDS ORDERED: ZOCOR 20MG20 MG PO (21:27)
[2019-06-07] MEDS ORDERED: LASIX 40MG TABL40 MG PO (21:28)
[2019-06-07] MEDS ORDERED: HYZAAR 50-12.1 UDTAB PO (21:28)
[2019-06-07] MEDS ORDERED: MELATONIN5 M1 SL (21:29)
[2019-06-08] MEDS ORDERED: TYLENOL 500MG500 MG PO (00:16)
== END 2019-06-07 16:00 | disposition home or self-care (01) ==
LOC: EUO 11:09
DX: D64.9 Anemia, unspecified (principal)
CPT/HCPCS: J7050; P9016

== ENCOUNTER 2019-06-07 19:37 | Inpatient (IN) | payer MEDICARE, BC ==
[~2019-06-07] VITALS: Ht 188 cm; Wt 98.2 kg
[~2019-06-07 19:37] MED LIST changes: +COUMADIN 77.5 MG/TAB PO
[2019-06-07 20:38] LABS: MEAN CELL VOLUME 95 fl (80.0-100.0); MEAN CORPUSCULAR HGB CONC 33 g/dl (33.0-37.0); MEAN PLATELET VOLUME 11.4 fl (7.4-10.4); PLATELET COUNT 139 K/mm3 (130-400); RED BLOOD COUNT 2.41 M/mm3 (4.20-5.60); REDCELL DISTRIBUTION WIDTH-CV 17.9 % (11.5-14.5)
[2019-06-07 20:44] LABS: HEMATOCRIT 22.8 % (42.0-52.0); HEMOGLOBIN 7.4 g/dl (13.5-18.0); MEAN CORPUSCULAR HEMOGLOBIN 31 pg (27.0-31.0)
[2019-06-07 20:57] LABS: INR 1.9 (0.8-3.0); PROTHROMBIN TIME 22.2 SECONDS (9.7-12.8)
[2019-06-07 21:02] LABS: ALBUMIN 3.4 gm/dL (3.5-5.0); BILIRUBIN,TOTAL 2.4 mg/dL (0.0-1.0); CALCIUM 8.3 mg/dL (8.4-10.2); CREATININE, serum 1.17 (0.66-1.25); POTASSIUM 4.9 mmol/L (3.4-5.0); TOTAL PROTEIN 6.6 gm/dL (6.4-8.2)
[2019-06-07] MEDS ORDERED: TOPROL XL 50MG50 MG PO (21:26)
[2019-06-07] MEDS ORDERED: ZOCOR 20MG20 MG PO (21:27)
[2019-06-07] MEDS ORDERED: HYZAAR 50-12.1 UDTAB PO (21:28)
[2019-06-07] MEDS ORDERED: LASIX 40MG TABL40 MG PO (21:28)
[2019-06-07] MEDS ORDERED: MELATONIN5 M1 SL (21:29)
[2019-06-07 21:30] LABS: ANISOCYTOSIS 1+; BAND 3 % (0-10); LYMPHOCYTE 5 % (20.0-51.0); MICROCYTOSIS 1+; NEUTROPHILS 89 % (42.0-75.2); PLATELET ESTIMATE NORMAL (NORMAL); POLYCHROMASIA 1+
[2019-06-07 21:31] LABS: STOMATOCYTE 1+
[2019-06-07 22:08] LABS: COLLECTION METHOD CLEAN CATCH
[2019-06-07 22:51] LABS: SQUAMOUS EPITHELIAL 0-2 /hpf; URINE BACTERIA None Seen /hpf; URINE RBC 0-2 /hpf
--- NOTE | 2019-06-07 22:59 | NUR ---
Report called by DONG Rojas in the ED. Patient will be brought over soon.
[2019-06-07 23:02] LABS: PH 5 (5-8); URINE APPEARANCE Hazy; URINE BILIRUBIN Negative (NEGATIVE); URINE BLOOD 1+ (NEGATIVE); URINE COLOR Amber; URINE GLUCOSE Negative (NEGATIVE); URINE KETONE Negative (NEGATIVE); URINE LEUKOCYTE ESTERASE 2+ (NEGATIVE); URINE NITRATE Negative (NEGATIVE); URINE PROTEIN(semi-quant) 2+ (NEGATIVE); URINE UROBILINOGEN >=4.0 mg/dL (NEGATIVE)
--- NOTE | 2019-06-07 23:26 | NUR ---
Patient arrives at this time via ED cart with belongings. Patient does have his personal walker here. Patient stands and turns/pivots to bed with some difficulty. Patient drags his left leg/limps. Attached to unit monitoring equipment. Patient is alert and oriented, speech appropriate. Patient does not currently have any complaints of pain when resting. Only has pain in his left knee when moving. Dressing on left knee is intact with quarter sized areas of drainage right over the incision, appears to be old drainage. Patient also has a callus on the posterior right foot just below the great toe. There is dark blood/bruising under the callus, patient states it is from the right leg having to work harder since having troubles with the left, says his physician is aware. Assessment complete. Lungs are clear bilaterally in all jolly. HR and rhythm regular. Patient is in afib on the monitor and V-paced. Normal S1 and S2 heard. Bowel sounds active x4. Oriented patient to unit and room. Explained the call light and controls on the bed. Patient has no further needs at this time. Will continue to monitor. Call light within reach.
[2019-06-07 23:43] VITALS: BP 102/61; PULSE 105
[2019-06-07 23:50] VITALS: O2SAT 99
[2019-06-07 23:54] VITALS: O2SAT 98
[2019-06-07 23:55] VITALS: O2SAT 98
[2019-06-07 23:57] VITALS: O2SAT 99
[2019-06-08] VITALS (697 sets, daily range): BP systolic 93–122; BP diastolic 55–74; PULSE 71–89; TEMP 98.1–101.9; O2SAT 55–100
[2019-06-08] MEDS ORDERED: TYLENOL 500MG500 MG PO (00:16)
--- NOTE | 2019-06-08 02:08 | NUR ---
Dr. Obrien calls at this time for an update. Gave him most recent vital signs and temperature. Patient has been stable thus far. His pressures have been on the softer side with systolic in the low 100's. There are orders to obtain a wound culture. Clarified with Dr. Obrien that he wants to wait to remove the dressing and see the wound until he is there to see the patient in the morning. Patient may not need a wound culture per Dr. Obrien. Patient is not on any pressors for blood pressure, they have been stable there all night. Patient is on maxipime and vanco for antibiotics. No further questions. Dr. Obrien will be here in the morning to see patient.
--- NOTE | 2019-06-08 04:00 | NUR ---
Patient sleeping at this time. Awakens easily to name. Patient has no complaints of pain. Vitals obtained and have remained stable. Patient's temperature has increased to 100.1. Patient has no further needs at this time. Will continue to monitor. Call light within reach.
--- NOTE | 2019-06-08 05:45 | NUR ---
Dr. Obrien at the bedside at this time to see patient. Dr Obrien assessed surgical site and is happy with the way it looks currently. Aquacell dressing replaced by physician. He answers all patient's questions. Dr. Obrien wants patient's leg kept more straight and to be elevated at the foot on 2 pillows to promote drainage of the edema in his leg. Can use ice to site PRN. Dr. Obrien states that there is nothing to get an accurate wound sample from, so wound sample can be d/c'd. Patient has no further questions.
[2019-06-08 05:52] LABS: INR 1.9 (0.8-3.0); PROTHROMBIN TIME 22.1 SECONDS (9.7-12.8)
[2019-06-08 05:55] LABS: BILIRUBIN,TOTAL 1.1 mg/dL (0.0-1.0); CALCIUM 7.6 mg/dL (8.4-10.2); CREATININE, serum 1.19 (0.66-1.25); POTASSIUM 4.2 mmol/L (3.4-5.0); TOTAL PROTEIN 5.6 gm/dL (6.4-8.2)
[2019-06-08 06:06] LABS: MEAN CELL VOLUME 95 fl (80.0-100.0); MEAN CORPUSCULAR HGB CONC 32 g/dl (33.0-37.0); MEAN PLATELET VOLUME 11.1 fl (7.4-10.4); PLATELET COUNT 125 K/mm3 (130-400); RED BLOOD COUNT 2.13 M/mm3 (4.20-5.60); REDCELL DISTRIBUTION WIDTH-CV 18.3 % (11.5-14.5)
[2019-06-08 06:17] LABS: HEMATOCRIT 20.3 % (42.0-52.0); HEMOGLOBIN 6.5 g/dl (13.5-18.0); MEAN CORPUSCULAR HEMOGLOBIN 31 pg (27.0-31.0)
[2019-06-08 07:20] LABS: BAND 8 % (0-10); HYPOCHROMIA 3+; LYMPHOCYTE 9 % (20.0-51.0); NEUTROPHILS 73 % (42.0-75.2); PLATELET ESTIMATE DECREASED (NORMAL)
--- NOTE | 2019-06-08 07:30 | NUR ---
Report received from nAa UMANA and care resumed.
--- NOTE | 2019-06-08 07:30 | NUR ---
Bedside report given to DONG Edmonds.
--- NOTE | 2019-06-08 10:12 | NUR ---
Initial visit; Patient thanked Wet End Operator for looking in on him and offering Spiritual Care. Patient thanked Wet End Operator for keeping him in her prayers.
--- NOTE | 2019-06-08 11:20 | NUR ---
Dr Grullon in to see pt at this time.
--- NOTE | 2019-06-08 12:38 | NUR ---
Dr Garduno called and notified of consult. No orders received at this time.
--- NOTE | 2019-06-08 13:30 | NUR ---
SW attended clinical rounding and met with patient and son to discuss discharge planning. Patient lives independently in [place]. He has a son that lives here and one that lives in [place]. Patient has a cane and a walker and [facility]. Patients PCP is Dr King and he saw him right before this admit when he sent him to the hospital to get a blood transfusion. Patient obtains his medications from [facility]. DPOA is on EMR. SW will continue to follow as patient may need long term outpatient IV antibiotics.
[2019-06-08 14:18] LABS: HEMATOCRIT 22.4 % (42.0-52.0); HEMOGLOBIN 7.2 g/dl (13.5-18.0)
[2019-06-08 14:56] LABS: INR 2.2 (0.8-3.0); PROTHROMBIN TIME 25.7 SECONDS (9.7-12.8)
--- NOTE | 2019-06-08 19:10 | NUR ---
RECEIVED REPORT FROM DONG HANSEN.
--- NOTE | 2019-06-08 19:15 | NUR ---
Report given to Donna UMANA and care transfered.
--- NOTE | 2019-06-08 22:37 | NUR ---
CALLED EDGARD WEBB REGARDING PATIENTS BLOOD CULTURES THAT CAME BACK POSITIVE FOR GRAM NEGATIVE RODS.
[2019-06-08 22:48] LABS: MEAN CELL VOLUME 95 fl (80.0-100.0); MEAN CORPUSCULAR HGB CONC 32 g/dl (33.0-37.0); MEAN PLATELET VOLUME 10.5 fl (7.4-10.4); PLATELET COUNT 122 K/mm3 (130-400); RED BLOOD COUNT 2.32 M/mm3 (4.20-5.60); REDCELL DISTRIBUTION WIDTH-CV 17.9 % (11.5-14.5)
[2019-06-08 22:51] LABS: MEAN CORPUSCULAR HEMOGLOBIN 30 pg (27.0-31.0)
[2019-06-08 23:35] LABS: BAND 7 % (0-10); LYMPHOCYTE 11 % (20.0-51.0); NEUTROPHILS 81 % (42.0-75.2); PLATELET ESTIMATE NORMAL (NORMAL)
[2019-06-09] VITALS (726 sets, daily range): BP systolic 102–112; BP diastolic 63–72; PULSE 63–76; TEMP 97.7–100.1; O2SAT 68–100
[2019-06-09 05:52] LABS: MEAN CELL VOLUME 95 fl (80.0-100.0); MEAN CORPUSCULAR HGB CONC 32 g/dl (33.0-37.0); MEAN PLATELET VOLUME 10.4 fl (7.4-10.4); PLATELET COUNT 116 K/mm3 (130-400); RED BLOOD COUNT 2.26 M/mm3 (4.20-5.60); REDCELL DISTRIBUTION WIDTH-CV 18.1 % (11.5-14.5)
[2019-06-09 05:57] LABS: HEMATOCRIT 21.4 % (42.0-52.0); HEMOGLOBIN 6.9 g/dl (13.5-18.0); MEAN CORPUSCULAR HEMOGLOBIN 31 pg (27.0-31.0)
[2019-06-09 06:00] LABS: INR 2.2 (0.8-3.0); PROTHROMBIN TIME 25.7 SECONDS (9.7-12.8)
[2019-06-09 06:07] LABS: ALBUMIN 2.7 gm/dL (3.5-5.0); BILIRUBIN,TOTAL 0.9 mg/dL (0.0-1.0); CALCIUM 7.4 mg/dL (8.4-10.2); CREATININE, serum 1.17 (0.66-1.25); POTASSIUM 4.3 mmol/L (3.4-5.0); TOTAL PROTEIN 5.4 gm/dL (6.4-8.2)
--- NOTE | 2019-06-09 06:07 | NUR ---
CALLED EDGARD WEBB RGARDING PATIENTS HGB LEVELS. DECIDED TO TRANSFUSE ONE UNIT OF BLOOD.
[2019-06-09 06:38] LABS: ANISOCYTOSIS 2+; BAND 13 % (0-10); LYMPHOCYTE 12 % (20.0-51.0); METAMYELOCYTE 2 % (0-0); NEUTROPHILS 61 % (42.0-75.2); PLATELET ESTIMATE NORMAL (NORMAL)
--- NOTE | 2019-06-09 07:20 | NUR ---
Bedside report received from DONG Thompson. Patient is alert and participates in report. Care taken over at this time.
--- NOTE | 2019-06-09 07:42 | NUR ---
gave report to marshall shay.
--- NOTE | 2019-06-09 07:45 | NUR ---
Patient is updated on plan of care and that he is supposed to get 1 unit of blood. He is unhappy with having to get another unit of blood. He wishes to hold off on blood transfusion and speak to the hospitalist about the recommended plan of care.
--- NOTE | 2019-06-09 13:10 | NUR ---
PATIENT CURRENTLY GETTING PRBC. NO S/S REACTION. WILL CONTINUE TO MONITOR CLOSELY.
--- NOTE | 2019-06-09 16:20 | NUR ---
BLOOD TRANSFUSION DONE AT THIS TIME. PATIENT TOLERATED WELL. WILL CONTINUE TO MONITOR. HE COMPLAINS AT THIS TIME OF VIVID DREAMS THAT CAUSE HIM TO TWITCH HIS LEGS IN HIS SLEEP AND THEN HAS MUSCLE SPASMS. HE REQUESTS SOMETHING FOR SLEEP TONIGHT.
[2019-06-09 19:35] LABS: HEMATOCRIT 24.4 % (42.0-52.0); HEMOGLOBIN 7.9 g/dl (13.5-18.0)
--- NOTE | 2019-06-09 19:40 | NUR ---
Bedside report received from Karen UMANA. Pts ex and son at bedside during this time. Questions encouraged and answered to the best of our ability.
--- NOTE | 2019-06-09 20:15 | NUR ---
REPORT GIVEN TO DONG VAZQUEZ. CARE TRANSFERRED AT THIS TIME.
--- NOTE | 2019-06-09 21:00 | NUR ---
Pt assessment complete. Pt resting in bed with glasses on and personal belongings with in reach. Makes requests known with proper use of the call light demonstrated. Up to commode with assistance of walker, this nurse and gait belt. Once pt returned to bed mary hose were removed in order to rinse and dry for the night. SCD's on bilaterally. Agreement between pt and nurse to provide PRN Ector when available prior to falling asleep.
[2019-06-10] VITALS (18 sets, daily range): BP systolic 109–117; BP diastolic 62–82; PULSE 70–78; TEMP 97.8–98.6; O2SAT 51–100
--- NOTE | 2019-06-10 04:00 | NUR ---
Pt resting in bed at this time with left leg elevated on 2 pillows. Described left leg as numb with "decreased movement". Pt asked this nurse for this "look at leg" although denies any further concerns. Bilateral legs were assessed against eachother. No changes noted as of this time, pt able to wiggle toes, PT pulse strong to palpate with DP weak. Dressing remains C/D/I. No new discoloration at this time.
[2019-06-10 05:38] LABS: RED BLOOD COUNT 2.56 M/mm3 (4.20-5.60)
[2019-06-10 05:39] LABS: MEAN CELL VOLUME 95 fl (80.0-100.0); MEAN CORPUSCULAR HGB CONC 32 g/dl (33.0-37.0); MEAN PLATELET VOLUME 10.5 fl (7.4-10.4); PLATELET COUNT 145 K/mm3 (130-400); REDCELL DISTRIBUTION WIDTH-CV 17.6 % (11.5-14.5)
[2019-06-10 05:42] LABS: HEMATOCRIT 24.3 % (42.0-52.0); HEMOGLOBIN 7.7 g/dl (13.5-18.0); INR 2.2 (0.8-3.0); MEAN CORPUSCULAR HEMOGLOBIN 30 pg (27.0-31.0); PROTHROMBIN TIME 26.3 SECONDS (9.7-12.8)
[2019-06-10 05:46] LABS: ALBUMIN 2.8 gm/dL (3.5-5.0); BILIRUBIN,TOTAL 0.8 mg/dL (0.0-1.0); CALCIUM 7.8 mg/dL (8.4-10.2); CREATININE, serum 0.99 (0.66-1.25); POTASSIUM 4.2 mmol/L (3.4-5.0); TOTAL PROTEIN 5.8 gm/dL (6.4-8.2)
[2019-06-10 06:10] LABS: BAND 1 % (0-10); EOSINOPHIL 3 % (0-4); LYMPHOCYTE 9 % (20.0-51.0); METAMYELOCYTE 2 % (0-0); NEUTROPHILS 80 % (42.0-75.2); PLATELET ESTIMATE NORMAL (NORMAL)
[2019-06-10 06:11] LABS: ANISOCYTOSIS 2+; MICROCYTOSIS 1+
[2019-06-10 06:12] LABS: HYPOCHROMIA 1+
--- NOTE | 2019-06-10 07:30 | NUR ---
Received bedside report from DONG Gomez.
--- NOTE | 2019-06-10 07:35 | NUR ---
Pt report provided to Shelly UMANA.
--- NOTE | 2019-06-10 10:40 | NUR ---
REPORT CALLED TO CD REACTOR OPERATOR HEAD, CARLOS, AT THIS TIME.
--- NOTE | 2019-06-10 15:00 | NUR ---
Patient alert and oriented, answers questions appropriately. See assessment. LLE with aquacel to incision clean, dry and intact. Pulses palpable to LLE, neuros intact. No c/o abdominal pain, bowel sounds active, +flatus. PICC in place to RUE, flushes well. No other c/o at this time.
--- NOTE | 2019-06-10 23:49 | NUR ---
Patient resting in bed with call light in reach. Noted to "dribble a bit" per patient and noted his pants were wet. Patient utilizing the urinal for voiding. Aquacell to left knee CDI. PICC to LARRY. Denies pain. Will continue to monitor patient.
[2019-06-11 04:00] VITALS: BP 110/66; PULSE 70; TEMP 97.8
[2019-06-11 09:04] LABS: MEAN CELL VOLUME 95 fl (80.0-100.0); MEAN CORPUSCULAR HGB CONC 32 g/dl (33.0-37.0); MEAN PLATELET VOLUME 10.3 fl (7.4-10.4); PLATELET COUNT 169 K/mm3 (130-400); RED BLOOD COUNT 2.71 M/mm3 (4.20-5.60); REDCELL DISTRIBUTION WIDTH-CV 17.7 % (11.5-14.5)
[2019-06-11 09:07] VITALS: BP 127/70; PULSE 70; TEMP 98.5
[2019-06-11 09:11] LABS: ALBUMIN 2.8 gm/dL (3.5-5.0); BILIRUBIN,TOTAL 0.6 mg/dL (0.0-1.0); CALCIUM 8.5 mg/dL (8.4-10.2); CREATININE, serum 0.95 (0.66-1.25); POTASSIUM 4.1 mmol/L (3.4-5.0); TOTAL PROTEIN 5.9 gm/dL (6.4-8.2)
[2019-06-11 09:15] LABS: INR 2.2 (0.8-3.0)
[2019-06-11 09:25] LABS: HEMATOCRIT 25.7 % (42.0-52.0); HEMOGLOBIN 8.1 g/dl (13.5-18.0); MEAN CORPUSCULAR HEMOGLOBIN 30 pg (27.0-31.0)
[2019-06-11 10:20] LABS: ANISOCYTOSIS 1+; BAND 7 % (0-10); EOSINOPHIL 1 % (0-4); HYPOCHROMIA 1+; LYMPHOCYTE 13 % (20.0-51.0); NEUTROPHILS 72 % (42.0-75.2); PLATELET ESTIMATE NORMAL (NORMAL)
--- NOTE | 2019-06-11 10:21 | NUR ---
Patient resting in bed. Ortho rounded this am. Patient did okay with breakfast, reports minimal appetite. Picc to Rue. Patient wanting to shower today & to increased his activity. L.knee aquacell drg intact. Teds & scds.
--- NOTE | 2019-06-11 11:25 | NUR ---
Patient assisted with shower. Thankful for care. Patient in bathroom, trying to have Bm. will monitor.
[2019-06-11 12:58] VITALS: BP 112/55; PULSE 72; TEMP 98
[2019-06-11 17:29] VITALS: BP 111/59; PULSE 69; TEMP 97.6
--- NOTE | 2019-06-11 17:39 | NUR ---
Patient resting in bed. denies the need for pain mediation at this time. [place] tab continues to mange well. He reports being able to take a nap this afternoon. He is going to order dinner, but no appetite. Picc to Int. Poncho Rojas & Scds. Drg to Shaylee JHAVERI. Will monitor.
--- NOTE | 2019-06-11 18:50 | NUR ---
Patient ambulated halls & did well with walker. Thankful for walk. Will report off to Ketan Tapia
[2019-06-11 20:00] VITALS: BP 117/60; PULSE 70; TEMP 97.6
[2019-06-12] VITALS (13 sets, daily range): BP systolic 112–130; BP diastolic 57–76; PULSE 69–85; TEMP 97.7–98.6
--- NOTE | 2019-06-12 05:14 | NUR ---
RESTING QUIETLY. NO c/o PAIN SINCE GETTING [facility]CO AT [facility]
[2019-06-12 07:24] LABS: MEAN CELL VOLUME 96 fl (80.0-100.0); MEAN CORPUSCULAR HGB CONC 32 g/dl (33.0-37.0); MEAN PLATELET VOLUME 9.9 fl (7.4-10.4); PLATELET COUNT 188 K/mm3 (130-400); REDCELL DISTRIBUTION WIDTH-CV 17.9 % (11.5-14.5)
[2019-06-12 07:26] LABS: MEAN CORPUSCULAR HEMOGLOBIN 31 pg (27.0-31.0)
[2019-06-12 07:29] LABS: INR 1.8 (0.8-3.0); PROTHROMBIN TIME 21.1 SECONDS (9.7-12.8)
--- NOTE | 2019-06-12 07:32 | NUR ---
Patient resting in bed. Reports awakening frequently over night due to having to void. Denies the need for pain medication this am. Bruce removed at this time, patient had on all night. Scds Ble. L.knee aquacell drg intact. Picc to Crystla, labs drwn this am. Patient not quite ready to get up for the day , Will let him rest.
[2019-06-12 07:35] LABS: ALBUMIN 2.9 gm/dL (3.5-5.0); BILIRUBIN,TOTAL 0.5 mg/dL (0.0-1.0); CALCIUM 8.5 mg/dL (8.4-10.2); CREATININE, serum 0.95 (0.66-1.25); POTASSIUM 4.1 mmol/L (3.4-5.0); TOTAL PROTEIN 5.9 gm/dL (6.4-8.2)
[2019-06-12 07:50] LABS: LYMPHOCYTE 13 % (20.0-51.0); NEUTROPHILS 79 % (42.0-75.2); PLATELET ESTIMATE NORMAL (NORMAL)
--- NOTE | 2019-06-12 12:01 | NUR ---
Dr. Hough rounded. Orders obtained. Plans for cysto this afternoon.
--- NOTE | 2019-06-12 12:30 | NUR ---
Vitamin K infusing via picc line, this nurse at bedside, monitoring for sign s& symptoms of reaction, none noted.
--- NOTE | 2019-06-12 12:37 | NUR ---
tolerated infusing. patient up to the bathroom, voided. steady on his feet. returned to bed.
[2019-06-12 15:36] LABS: INR 1.6 (0.8-3.0)
--- NOTE | 2019-06-12 15:59 | NUR ---
Myriam Pacu nurse took patient to OR. Patient to sign consent after he speaks to . Patient Given NS to gravity & Pepcid po for preop orders. Will await his return
--- NOTE | 2019-06-12 20:15 | NUR ---
PT BACK FROM PACU AFTER CYSTO. PT DENIES PAIN INITIALLY. SANDOVAL CATH INTACT, YELLOW URINE FLOWING IN TUBING.
[2019-06-13 04:36] VITALS: BP 125/71; PULSE 83; TEMP 97.7
[2019-06-13 07:55] VITALS: BP 128/69; PULSE 69; TEMP 98
--- NOTE | 2019-06-13 08:00 | NUR ---
Patient in bed resting. Alert and oriented x 3. Shift assessment complete. Patient very anxious about POC. Educated patient on plan of care. [place] to dependent drainage with clear glenn urine present. Educated patient on increasing oral intake. Bruce hose to BLE. SCDs to BLE. Denies pain or further needs at this time.
[2019-06-13 10:00] VITALS: BP 116/62; PULSE 70; TEMP 97.8
--- NOTE | 2019-06-13 11:14 | NUR ---
Follow-up visit; Patient thanked Retail Assistant Store Manager for stopping, patient seems to be doing well, is awaiting the of a grandson, which is very exciting.
[2019-06-13 12:39] VITALS: BP 122/63; PULSE 71; TEMP 97.9
--- NOTE | 2019-06-13 13:14 | NUR ---
ALMA met with the patient to review discharge plan. The patient reports that he still plans to return home with family assistance and resume outpatient PT at [facility] upon discharge. ALMA discussed home health services. The patient reports that he is not interested in getting set up with home health at this time. He did state he would be interested in getting a list of home health agencies, in case he were to want them in the future. ALMA provided the patient with Medicare.gov's list of home health agencies that serve [place]. ALMA to continue to follow.
[2019-06-13] MEDS ORDERED: CIPRO 500MG TA500 MG PO (15:29)
--- NOTE | 2019-06-13 16:13 | NUR ---
The patient is to discharge back home today, 06/13, and will resume outpatient PT at [facility]. SW presented and explained the IM form to the patient. The patient verbalized understanding, signed, and he was provided a copy. No additional needs at this time.
[2019-06-13 17:03] VITALS: BP 118/62; PULSE 69; TEMP 98.2
--- NOTE | 2019-06-13 18:10 | NUR ---
Discharge education provided to patient. Aquacell to left knee remains CDI. Tedhose on BLE. Patient educated on signs and symptoms of infection. HAs voided without difficulty. Patient educated on home medications. PICC line discontinued by charge nurse. Dressing is CDI. Educated patient on importance of scheduling and maintaining follow appointments. All questions answered. Assisted patient to dress. Patient out by wheelchair with surgical staff. Family at bedside.
== END 2019-06-13 18:10 | disposition home or self-care (01) | DRG 854 ==
LOC: COL.ER 19:37 → ICU 21:53 → EDBEDREQ 21:57 → SURG 06-10 11:53
PROVIDERS: Emergency Medicine; Family Medicine; Nurse Practitioner; Physician Assistant; Surgery; Urology; ADMIT Family Medicine
PROC: 02HV33Z Insertion of Infusion Device into Superior Vena Cava, Percutaneous Approach (ICD-10-PCS; 2019-06-08)
PROC: 0TP98DZ Removal of Intraluminal Device from Ureter, Via Natural or Artificial Opening Endoscopic (ICD-10-PCS; 2019-06-12)
PROC: 0T768DZ Dilation of Right Ureter with Intraluminal Device, Via Natural or Artificial Opening Endoscopic (ICD-10-PCS; principal; 2019-06-12 16:00)
PROC: BT1D1ZZ Fluoroscopy of Right Kidney, Ureter and Bladder using Low Osmolar Contrast (ICD-10-PCS; 2019-06-12 16:00)
DX: A41.53 Sepsis due to Serratia (principal); E87.1 Hypo-osmolality and hyponatremia; I42.8 Other cardiomyopathies; N13.1 Hydronephrosis with ureteral stricture, not elsewhere classified; K81.9 Cholecystitis, unspecified; I48.91 Unspecified atrial fibrillation; I10 Essential (primary) hypertension; E11.42 Type 2 diabetes mellitus with diabetic polyneuropathy; D64.9 Anemia, unspecified; K59.00 Constipation, unspecified; Z95.0 Presence of cardiac pacemaker; Z96.652 Presence of left artificial knee joint; Z88.0 Allergy status to penicillin; Z79.01 Long term (current) use of anticoagulants; Z86.718 Personal history of other venous thrombosis and embolism; E87.8 Other disorders of electrolyte and fluid balance, not elsewhere classified
CPT/HCPCS: 99223-AI; 99233-AI; 99239; A4216; A4314; A9537; C1726; C1751; C1769; C2617; J0690; J0692; J0696; J1100; J1200; J2405; J2704; J3010; J3370; J3430; J7030; J7050; J7120; P9016; Q9967

== ENCOUNTER → 2019-07-20 | Outpatient (CLI) | payer MEDICARE, BC ==
[~2019-07-20] MED LIST changes: +CIPRO 500MG TA500 MG PO; +HYZAAR 50-12.1 UDTAB PO; +MELATONIN5 M1 SL; +TYLENOL 500MG500 MG PO
== END ==
LOC: COL.RAD 09:00
DX: N13.30 Unspecified hydronephrosis (principal); N26.1 Atrophy of kidney (terminal); K81.9 Cholecystitis, unspecified

== ENCOUNTER 2020-10-12 17:31 | Inpatient (IN) | payer MEDICARE, BC ==
[~2020-10-12] VITALS: Ht 190.5 cm; Wt 93.9 kg
[2020-10-12 18:40] LABS: BASO % 0.3 % (0.0-2.0); EOS # 0.1 (0.0-0.7); EOS % 1.2 % (0-4.0); GRAN # 7.5 (1.4-6.5); GRAN % 78.9 % (42.2-75.2); HEMOGLOBIN 10.5 g/dl (13.5-18.0); LYMPH # 0.9 (1.2-3.4); LYMPH % 9.8 % (20.0-51.0); MEAN CELL VOLUME 94 fl (80.0-100.0); MEAN CORPUSCULAR HEMOGLOBIN 32 pg (27.0-31.0); MEAN CORPUSCULAR HGB CONC 34 g/dl (33.0-37.0); MEAN PLATELET VOLUME 10.5 fl (7.4-10.4); MONO # 0.8 (0.1-0.6); MONO % 8.4 % (1.7-9.3); PLATELET COUNT 204 K/mm3 (130-400); RED BLOOD COUNT 3.25 M/mm3 (4.20-5.60); REDCELL DISTRIBUTION WIDTH-CV 14.7 % (11.5-14.5)
[2020-10-12 18:41] LABS: HEMATOCRIT 30.6 % (42.0-52.0)
[2020-10-12 18:42] LABS: INR 2.7 (0.8-3.0); PROTHROMBIN TIME 30.8 SECONDS (9.7-12.8)
[2020-10-12 18:47] LABS: ALBUMIN 4.2 gm/dL (3.5-5.0); BILIRUBIN,TOTAL 2.6 mg/dL (0.0-1.0); CREATININE, serum 1.62 (0.66-1.25); MAGNESIUM 2.5 mg/dL (1.6-2.3); POTASSIUM 3.1 mmol/L (3.4-5.0); TOTAL PROTEIN 7.4 gm/dL (6.4-8.2)
[2020-10-12 18:58] LABS: TROPONIN-I 0.029 ng/mL (0.000-0.035)
[2020-10-12 20:35] LABS: COLLECTION METHOD CLEAN CATCH
[2020-10-12 20:44] LABS: MUCOUS Present /lpf; PH 7 (5-8); SQUAMOUS EPITHELIAL None Seen /hpf; URINE APPEARANCE Clear; URINE BACTERIA None Seen /hpf; URINE BILIRUBIN Negative (NEGATIVE); URINE BLOOD Negative (NEGATIVE); URINE COLOR Yellow; URINE GLUCOSE Negative (NEGATIVE); URINE KETONE Negative (NEGATIVE); URINE LEUKOCYTE ESTERASE Negative (NEGATIVE); URINE NITRATE Negative (NEGATIVE); URINE PROTEIN(semi-quant) Negative (NEGATIVE); URINE RBC 0-2 /hpf; URINE UROBILINOGEN Negative (NEGATIVE)
[2020-10-12] MEDS ORDERED: AMOXICILLIN/CLA1 TA1 PO (22:36)
[2020-10-12] MEDS ORDERED: MICRO-K 10 EXT10 MEQ PO (22:37)
[2020-10-12] MEDS ORDERED: ZYLOPRIM 300MG300 MG PO (22:37)
[2020-10-12] MEDS ORDERED: COUMADIN 5MG5 MG/TAB PO (22:38)
[2020-10-12] MEDS ORDERED: ZAROXOLYN5 MG PO (22:38)
[2020-10-12] MEDS ORDERED: FLOMAX 0.40.4 MG/CAP PO (22:40)
[2020-10-13] VITALS (9 sets, daily range): BP systolic 92–151; BP diastolic 51–73; PULSE 70–140; TEMP 97.9–98.7
--- NOTE | 2020-10-13 01:01 | NUR ---
Patient up from ED. Patient alert and oriented. Patient oriented to room and 5 page completed. Patient has no complaints of pain.
--- NOTE | 2020-10-13 08:00 | NUR ---
Patient in bed resting. Alert and oriented x 3. Assistd patient to stand up at edge of bed to void. Fluids infusing per orders to right AC IV. Varicose veins to BLE. Patient denies pain at this time. Denies further needs at this time.
[2020-10-13 08:28] LABS: HEMOGLOBIN 10.1 g/dl (13.5-18.0); MEAN CELL VOLUME 96 fl (80.0-100.0); MEAN CORPUSCULAR HEMOGLOBIN 33 pg (27.0-31.0); MEAN CORPUSCULAR HGB CONC 34 g/dl (33.0-37.0); MEAN PLATELET VOLUME 10.3 fl (7.4-10.4); PLATELET COUNT 195 K/mm3 (130-400); RED BLOOD COUNT 3.07 M/mm3 (4.20-5.60)
[2020-10-13 08:29] LABS: HEMATOCRIT 29.4 % (42.0-52.0)
[2020-10-13 08:37] LABS: CALCIUM 8.7 mg/dL (8.4-10.2); CREATININE, serum 1.31 (0.66-1.25)
[2020-10-13 10:41] LABS: LYMPHOCYTE 14 % (20.0-51.0); NEUTROPHILS 79 % (42.0-75.2); PLATELET ESTIMATE NORMAL (NORMAL)
--- NOTE | 2020-10-13 12:09 | NUR ---
First visit from the director trust. No needs right now.
--- NOTE | 2020-10-13 15:49 | NUR ---
SW met with patient at his bedside to complete intake. Patient reports that he currently resides in [facility] with his son Christiano [phone] as his care support and EMR. Patient reports that he is independent of ADL's and that he does have a DPOA. Patient reports that he now uses a cane, and that Dr. Correia is his PCP. Patient indicated that he does not have an upcoming appointment. Patient reports that he gets his medications from [facility] with no concerns. Patient declined home health services at this time. However indicated needed assistance with meal preparation. SW will provide information on meals on wheels for patient. SW will continue to follow.
--- NOTE | 2020-10-13 18:41 | NUR ---
Patient has done well throughout the day. Has been up with assist and cane to restroom throughout the day. Patient denies pain or further needs at this time.
--- NOTE | 2020-10-13 20:30 | NUR ---
LAST DOSE OF ORAL POTASSIUM GIVEN [facility]. PT DENIES NEEDS AT THIS TIME. VOIDING PER URINAL YELLOW URINE. IVF INFUSING TO RT AC WITHOUT REDNESS OR SWELLING.
--- NOTE | 2020-10-14 01:05 | NUR ---
MEDICATED WITH TYLENOL 650MG PO FOR COMPLAIN OF KNEE PAIN.
[2020-10-14 04:53] VITALS: BP 114/65; PULSE 70; TEMP 97.8
--- NOTE | 2020-10-14 05:00 | NUR ---
PT VOIDING PER URINAL WITHOUT PROBLEM. IVF CONTINUE. DENIES NEEDS AT THIS TIME.
[2020-10-14 07:23] LABS: HEMOGLOBIN 10.7 g/dl (13.5-18.0); MEAN CELL VOLUME 96 fl (80.0-100.0); MEAN CORPUSCULAR HEMOGLOBIN 33 pg (27.0-31.0); MEAN CORPUSCULAR HGB CONC 34 g/dl (33.0-37.0); MEAN PLATELET VOLUME 9.3 fl (7.4-10.4); PLATELET COUNT 194 K/mm3 (130-400); RED BLOOD COUNT 3.29 M/mm3 (4.20-5.60); REDCELL DISTRIBUTION WIDTH-CV 15.1 % (11.5-14.5)
[2020-10-14 07:28] LABS: HEMATOCRIT 31.7 % (42.0-52.0)
[2020-10-14 07:30] LABS: PROTHROMBIN TIME 34.1 SECONDS (9.7-12.8)
[2020-10-14 07:31] LABS: CALCIUM 8.8 mg/dL (8.4-10.2); CREATININE, serum 1.09 (0.66-1.25); POTASSIUM 3.6 mmol/L (3.4-5.0)
[2020-10-14 07:45] LABS: IRON,SERUM 84 ug/dL (35-150)
[2020-10-14 07:54] LABS: TOTAL IRON BINDING CAPACITY 303 ug/dL (261-462)
[2020-10-14 08:26] LABS: BAND 3 % (0-10); EOSINOPHIL 4 % (0-4); LYMPHOCYTE 11 % (20.0-51.0); MYELOCYTE 1 % (0-0); NEUTROPHILS 76 % (42.0-75.2)
[2020-10-14 08:27] LABS: ANISOCYTOSIS 1+; PLATELET ESTIMATE NORMAL (NORMAL)
[2020-10-14 08:35] VITALS: BP 108/61; PULSE 69; TEMP 97.6
--- NOTE | 2020-10-14 09:00 | NUR ---
Patient is doing well today. He is discharging home. No complaints of pain or nausea. He stated will call his ride once discharge orders are finalized. Discussed his plan for outpatient therapy. No other changes at this time. Call light within reach.
--- NOTE | 2020-10-14 10:45 | NUR ---
Patient is discharging home. Gave him the phone numbers to call [facility] for PT/OT/ST. 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 Discussed that he can only have 64 ounces of liquids in 24 hours at home. He verbalized understanding. Explained he has to call Thursday to make follow up appointment with cardiology and PCP. No questions verbalzed. INT discontinued. Copies of discharge instructions sent with patient. His belongings packed up for patient. Patient walked out via wheel chair.
== END 2020-10-14 10:45 | disposition home or self-care (01) | DRG 683 ==
LOC: COL.ER 17:31 → SURG 22:45
PROVIDERS: Emergency Medicine; Family Medicine; Nurse Practitioner Family; ADMIT Student in an Organized Health Care Education/Training Program
DX: N17.9 Acute kidney failure, unspecified (principal); E87.1 Hypo-osmolality and hyponatremia; I42.8 Other cardiomyopathies; E87.3 Alkalosis; E87.6 Hypokalemia; I10 Essential (primary) hypertension; I25.10 Atherosclerotic heart disease of native coronary artery without angina pectoris; M10.9 Gout, unspecified; Z20.828 Contact with and (suspected) exposure to other viral communicable diseases; D64.9 Anemia, unspecified; Z96.652 Presence of left artificial knee joint; I48.91 Unspecified atrial fibrillation; I27.20 Pulmonary hypertension, unspecified; E87.8 Other disorders of electrolyte and fluid balance, not elsewhere classified; E11.65 Type 2 diabetes mellitus with hyperglycemia; Z79.01 Long term (current) use of anticoagulants; Z95.0 Presence of cardiac pacemaker
CPT/HCPCS: 99223-AI; 99232-AI; 99239; J7030

== ENCOUNTER → 2020-11-26 | Outpatient (RCR) | payer MEDICARE, BC ==
[~2020-11-26] MED LIST changes: +AMOXICILLIN/CLA1 TA1 PO; +MICRO-K 10 EXT10 MEQ PO; +ZAROXOLYN5 MG PO
== END | disposition home or self-care (01) ==
LOC: WSC → WSPT 11-15 09:15 → WSC 11-22 13:15
DX: M79.89 Other specified soft tissue disorders (principal); Z96.653 Presence of artificial knee joint, bilateral

== ENCOUNTER 2021-01-28 13:45 | Outpatient (RCR) | payer MEDICARE, BC | END 2021-02-27 | disposition home or self-care (01) | LOC: WSC | DX: M25.569 Pain in unspecified knee (principal); R60.0 Localized edema ==

== ENCOUNTER 2022-01-15 19:43 | Emergency (ER) | payer MEDICARE, BC ==
[~2022-01-15] VITALS: Ht 190.5 cm; Wt 100.9 kg
[2022-01-15 20:27] LABS: BASO % 0.3 % (0.0-2.0); EOS % 0.3 % (0.0-4.0); GRAN # 9.7 K/mm3 (1.4-6.5); GRAN % 86.8 % (42.2-75.2); HEMOGLOBIN 14.1 g/dl (13.5-18.0); LYMPH # 0.6 K/mm3 (1.2-3.4); LYMPH % 5.1 % (20.0-51.0); MEAN CELL VOLUME 97 fl (80.0-100.0); MEAN CORPUSCULAR HEMOGLOBIN 33 pg (27-31); MEAN CORPUSCULAR HGB CONC 34 g/dl (33.0-37.0); MEAN PLATELET VOLUME 10.4 fl (7.4-10.4); MONO # 0.8 K/mm3 (0.1-0.6); MONO % 7.1 % (1.7-9.3); PLATELET COUNT 82 K/mm3 (130-400); RED BLOOD COUNT 4.23 M/mm3 (4.20-5.60); REDCELL DISTRIBUTION WIDTH-CV 14.7 % (11.5-14.5)
[2022-01-15 20:45] LABS: ALBUMIN 4.6 gm/dL (3.4-4.8); BILIRUBIN,TOTAL 1.5 mg/dL (0.2-1.2); C-REACTIVE PROTEIN 0.88 mg/dL (0.00-0.50); CALCIUM 9.1 mg/dL (8.4-10.2); CREATININE, serum 1.06 mg/dL (0.72-1.25); POTASSIUM 4.1 mmol/L (3.5-4.5); TOTAL PROTEIN 7.1 gm/dL (6.2-8.1)
[2022-01-15 21:01] LABS: TROPONIN-I 0.017 ng/mL (0.00-0.033)
[2022-01-15 22:08] LABS: PROTHROMBIN TIME 22.7 SECONDS (9.7-12.8)
[2022-01-15] MEDS ORDERED: NEXIUM 20MG20 MG PO (22:36)
[2022-01-15 22:52] VITALS: BP 168/99; PULSE 88; TEMP 97.8
== END 2022-01-15 22:51 | disposition home or self-care (01) ==
LOC: COL.ER 19:43
PROVIDERS: Nurse Practitioner
DX: R07.0 Pain in throat (principal); Z20.822 Contact with and (suspected) exposure to COVID-19
CPT/HCPCS: Q9967